=== PATIENT | female | born 1975 | race Caucasian/White ===

== ENCOUNTER 2018-07-30 20:31 | Emergency (ER) | payer OTHER ==
[2018-07-30 20:39] VITALS: RESP 18
[2018-07-30 21:40] LABS: ALT 33 U/L (9-52); AST 22 U/L (14-36); Albumin 4.8 g/dL (3.5-5.0); Alkaline Phosphatase 92 U/L (38-126); Anion Gap 9 mmol/L; Blood Urea Nitrogen 24 mg/dL (7-17); Calcium 9.5 mg/dL (8.4-10.2); Carbon Dioxide 23 mmol/L (22-30); Chloride 109 mmol/L (98-107); Creatine Kinase 89 U/L (30-135); Glucose 99 mg/dL (74-99); Sodium 141 mmol/L (137-145); Total Bilirubin 0.3 mg/dL (0.2-1.3); Total Protein 7.5 g/dL (6.3-8.2)
[2018-07-30 21:41] LABS: Basophils # (A) 0.1 k/uL (0-0.2); Basophils % (A) 1 %; Eosinophils # (A) 0.2 k/uL (0-0.7); Eosinophils % (A) 2 %; HCT 46.9 % (34.0-46.0); HGB 15.7 gm/dL (11.4-16.0); Lymphocytes # (A) 3.8 k/uL (1.0-4.8); Lymphocytes % (A) 35 %; MCH 30.1 pg (25.0-35.0); MCHC 33.4 g/dL (31.0-37.0); MCV 90.1 fL (80.0-100.0); Mean Platelet Volume 7.5; Monocytes # (A) 0.6 k/uL (0-1.0); Monocytes % (A) 5 %; Neutrophils # (A) 5.7 k/uL (1.3-7.7); Neutrophils % (A) 54 %; Platelet Count 230 k/uL (150-450); RBC 5.21 m/uL (3.80-5.40); RDW 14.5 % (11.5-15.5); WBC 10.6 k/uL (3.8-10.6)
[2018-07-30 21:45] LABS: D-Dimer 0.42 mg/L FEU (<0.60); INR 0.9 (<1.2); Partial Thromboplastin Time 24.9 sec (22.0-30.0); Prothrombin Time 10.1 sec (9.0-12.0)
--- NOTE | 2018-07-30 21:48 | XR ---
EXAMINATION TYPE: XR chest 2V DATE OF EXAM: 07/30/2018 COMPARISON: 11/02/2010 HISTORY: Chest pain TECHNIQUE: Frontal and lateral views of the chest are obtained. FINDINGS: Heart and mediastinum are normal. Lungs are clear. Diaphragm is normal. Bony thorax appear s normal. IMPRESSION: Normal chest. No change.
[2018-07-30] MEDS ORDERED: predniSONE 50 MG TAB PO STA (21:55)
[2018-07-30] MEDS ORDERED: HYDROcodone/APAP 5-325MG 1 EACH TAB PO STA (21:56)
--- NOTE | 2018-07-30 22:08 | ED ---
General Adult HPI - General Chief complaint: Extremity Injury, Upper Stated complaint: Pain in shoulders Source: patient Mode of arrival: ambulatory Limitations: no limitations - History of Present Illness Initial comments: 42-year-old female presenting for all of her muscle pain. Patient states that for the past week since last Tuesday she feels as though her muscles are being written the bone. She states it first began the left shoulder than the right shoulder she states it occurs at the wrist and at the knees bilaterally. Patient states that the neck she states it feels like it is sharp tearing pain in her entire body. Patient denies fall or trauma to the head neck or shoulders. Patient denies chest pain, dyspnea or dyspnea on exertion. Patient denies fever chills night sweats dizziness. Patient denies nausea vomiting epigastric or abdominal pain. Patient states she has a large family history of autoimmune disease as well as rheumatoid arthritis. Remaining review of systems negative, Patient denies any numbness or tingling of extremities, dysuria or he maturia, constipation or diarrhea, visual changes, or any other complaints. - Related Data Previous Rx's Medication Instructions Recorded predniSONE 20 mg PO BID 4 Days #8 tab 07/30/18 Allergies Allergy/AdvReac Type Severity Reaction Status Date / Time No Known Allergies Allergy Verified 07/30/18 20:39 Review of Systems ROS Statement: Those systems with pertinent positive or pertinent negative responses have been documented in the HPI. ROS Other: All systems not noted in ROS Statement are negative. Past Medical History Past Medical History: No Reported History History of Any Multi-Drug Resistant Organisms: None Reported Past Surgical History: Tubal Ligation Past Psychological History: Depression Smoking Status: Current every day smoker Past Alcohol Use History: None Reported Past Drug Use History: None Reported General Exam - General Exam Comments Initial Comments: General: The patient is awake and alert, in no distress, and does not appear acutely ill. Eye: Pupils are equal, round and reactive to light, extra-ocular movements are intact. No nystagmus. There is normal conjunctiva bilaterally. No signs of icterus. Ears, nose, mouth and throat: There are moist mucous membranes and no oral lesions. Neck: The neck is supple, there is no tenderness or JVD. Cardiovascular: There is a regular rate and rhythm. No murmur, rub or gallop is appreciated. Respiratory: Lungs are clear to auscultation, respirations are non-labored, breath sounds are equal. No wheezes, stridor, rales, or rhonchi. Gastrointestinal: Soft, non-distended, non-tender abdomen without masses or organomegaly noted. There is no rebound or guarding present. No CVA tenderness. Bowel sounds are unremarkable. Musculoskeletal: Normal ROM, no tenderness. Strength 5/5. Sensation intact. Pulses equal bilaterally 2+. Neurological: A&O x 3. CN II-XII intact, There are no obvious motor or sensory deficits. Coordination appears grossly intact. Speech is normal. Skin: Skin is warm and dry and no rashes or lesions are noted. Psychiatric: Cooperative, appropriate mood & affect, normal judgment. Limitations: no limitations Course Vital Signs 07/30/18 07/30/18 20:34 22:24 Temperature 97.7 F 98.5 F Pulse Rate 93 80 Respiratory 18 18 Rate Blood Pressure 128/82 120/85 O2 Sat by Pulse 97 99 Oximetry EKG Findings - EKG Comments: EKG Findings:: Ventricular rate 84 bpm, OK interval 140 ms, QR mandaeism 88 ms, QT/QTC 372/439 ms. Normal sinus rhythm with rightward axis deviation. No ST elevation or depression noted. Nonspecific T-wave. Medical Decision Making - Medical Decision Making 42-year-old female who denies past medical history presenting today for chief complaint of all over pain. Patient states it feels like her muscles of her arms and legs are being ripped from the bone. Patient has family history of autoimmune disease including rheumatoid arthritis. Patient states she has pain in the hand as well as the wrist. Patient denies any areas of swelling. Patient has history of history of blood clot. Patient denies history of IN. Patient denies chest pain or shortness of breath. Upon arrival patient appears well there is no signs of acute distress. Ambulated without difficulty. No focal neurological deficits. Laboratory studies are unremarkable. Troponin negative D dimer negative. No acute EKG changes. Patient's symptoms do not appear cohesive with an acute coronary syndrome. Chest x-ray was obtained revealing no acute cardiopulmonary process. At this time is unclear the etiol ogy of patient's pain. With the patient's family history differential diagnosis includes autoimmune disease, rheumatoid arthritis or fibromyalgia. Patient will be started on a steroid for the next 4 days. Patient provided 50 mg tablet of prednisone in the emergency department as well as medical. Patient has right home. Instructed patient to follow-up outpatient as well as with a sales officer. For further evaluation. Patient is agreeable to plan of care today as well as discharge. I discussed the case with a provider who is agreeable with care plan and patients discharge. - Lab Data Result diagrams: 07/30/18 21:20 07/30/18 21:20 Lab Results 07/30/18 07/30/18 07/30/18 Range/Units 21:20 21:20 21:20 WBC 10.6 (3.8-10.6) k/uL RBC 5.21 (3.80-5.40) m/uL Hgb 15.7 (11.4-16.0) gm/dL Hct 46.9 H (34.0-46.0) % MCV 90.1 (80.0-100.0) fL MCH 30.1 (25.0-35.0) pg MCHC 33.4 (31.0-37.0) g/dL RDW 14.5 (11.5-15.5) % Plt Count 230 (150-450) k/uL Neutrophils % 54 % Lymphocytes % 35 % Monocytes % 5 % Eosinophils % 2 % Basophils % 1 % Neutrophils # 5.7 (1.3-7.7) k/uL Lymphocytes # 3.8 (1.0-4.8) k/uL Monocytes # 0.6 (0-1.0) k/uL Eosinophils # 0.2 (0-0.7) k/uL Basophils # 0.1 (0-0.2) k/uL PT 10.1 (9.0-12.0) sec INR 0.9 (<1.2) APTT 24.9 (22.0-30.0) sec D-Dimer 0.42 (<0.60) mg/L FEU Sodium 141 (137-145) mmol/L Potassium 4.0 (3.5-5.1) mmol/L Chloride 109 H (98-107) mmol/L Carbon Dioxide 23 (22-30) mmol/L Anion Gap 9 mmol/L BUN 24 H (7-17) mg/dL Creatinine 0.76 (0.52-1.04) mg/dL Est GFR (CKD-EPI)AfAm >90 (>60 ml/min/1.73 sqM) Est GFR (CKD-EPI)NonAf >90 (>60 ml/min/1.73 sqM) Glucose 99 (74-99) mg/dL Calcium 9.5 (8.4-10.2) mg/dL Total Bilirubin 0.3 (0.2-1.3) mg/dL AST 22 (14-36) U/L ALT 33 (9-52) U/L Alkaline Phosphatase 92 (38-126) U/L Creatine Kinase 89 (30-135) U/L Troponin I (0.000-0.034) ng/mL Total Protein 7.5 (6.3-8.2) g/dL Albumin 4.8 (3.5-5.0) g/dL 07/30/18 Range/Units 21:20 WBC (3.8-10.6) k/uL RBC (3.80-5.40) m/uL Hgb (11.4-16.0) gm/dL Hct (34.0-46.0) % MCV (80.0-100.0) fL MCH (25.0-35.0) pg MCHC (31.0-37.0) g/dL RDW (11.5-15.5) % Plt Count (150-450) k/uL Neutrophils % % Lymphocytes % % Monocytes % % Eosinophils % % Basophils % % Neutrophils # (1.3-7.7) k/uL Lymphocytes # (1.0-4.8) k/uL Monocytes # (0-1.0) k/uL Eosinophils # (0-0.7) k/uL Basophils # (0-0.2) k/uL PT (9.0-12.0) sec INR (<1.2) APTT (22.0-30.0) sec D-Dimer (<0.60) mg/L FEU Sodium (137-145) mmol/L Potassium (3.5-5.1) mmol/L Chloride (98-107) mmol/L Carbon Dioxide (22-30) mmol/L Anion Gap mmol/L BUN (7-17) mg/dL Creatinine (0.52-1.04) mg/dL Est GFR (CKD-EPI)AfAm (>60 ml/min/1.73 sqM) Est GFR (CKD-EPI)NonAf (>60 ml/min/1.73 sqM) Glucose (74-99) mg/dL Calcium (8.4-10.2) mg/dL Total Bilirubin (0.2-1.3) mg/dL AST (14-36) U/L ALT (9-52) U/L Alkaline Phosphatase (38-126) U/L Creatine Kinase (30-135) U/L Troponin I <0.012 (0.000-0.034) ng/mL Total Protein (6.3-8.2) g/dL Albumin (3.5-5.0) g/dL Disposition Clinical Impression: Bone pain Disposition: HOME SELF-CARE Condition: Good Instructions (If sedation given, give patient instructions): Trigger Point Pain (ED) Additional Instructions: Please use medication as discussed. Please follow-up with family doctor in the next 2 days, I recommend rheumatoid evaluation. Please return to emergency room if the symptoms increase or worsen or for any other concerns. Prescriptions: predniSONE 20 mg PO BID 4 Days #8 tab Is patient prescribed a controlled substance at d/c from ED?: No Referrals: None,Stated [Primary Care Provider] - 1-2 days [facility] [NON[facility]] - 1-2 days Valentina Winkler MD [STAFF PHYSICIAN] - 1-2 days Time of Disposition: 22:07
[2018-07-30 22:25] VITALS: BP 120/85; PULSE 80; TEMP 98.5
== END 2018-07-30 22:25 | disposition home or self-care (01) ==
LOC: EC 20:31
DX: M89.8X4 Other specified disorders of bone, hand (principal); M89.8X8 Other specified disorders of bone, other site; F17.200 Nicotine dependence, unspecified, uncomplicated
CPT/HCPCS: 36415; 93005; 85379; 80053; 82550; 84484; 85025; 85610; 85730; 71046; 99284; J7512

== ENCOUNTER 2018-08-08 10:56 | Emergency (ER) | payer OTHER ==
[2018-08-08] MEDS ORDERED: KETOROLAC 60 MG/2 ML VIAL IM STA (11:35)
--- NOTE | 2018-08-08 11:41 | ED ---
General Adult HPI - General Chief complaint: Back Pain/Injury Stated complaint: Hip pain Time Seen by Provider: 08/08/18 11:12 Source: patient, RN notes reviewed Mode of arrival: ambulatory Limitations: no limitations - History of Present Illness Initial comments: Patient 42-year-old female presented to the emergency room today with chief complaint of increased left hip pain radiate down to the left knee. Patient denies any injury or trauma. She does admit that yesterday she was washing some dishes at her [place] when she had some increased pain. She does admit that it's worse with movements. She does admit that she's had some symptoms of sciatic type pain on and off over the last few years. She states she was here in the emergency room approximately a week ago because she was having some pain to her shoulders bilaterally. She states that she was given anti-inflammatories and steroids at the time and improved. She states she feel fine but this is similar pain that now she does experience intermittent hip. Patient denies any other complaints or symptoms. Patient denies any recent fever, chills, shortness of breath, chest pain, abdominal pain, nausea or vomiting, headaches or visual changes, or any other complaints. - Related Data Home Medications Medication Instructions Recorded Confirmed Ibuprofen [Motrin Ib] 800 mg PO TID PRN 08/08/18 08/08/18 Multivitamins, Thera [Multivitamin 1 tab PO DAILY 08/08/18 08/08/18 (formulary)] Previous Rx's Medication Instructions Recorded Cyclobenzaprine [Flexeril] 10 mg PO TID #20 tab 08/08/18 Ibuprofen [Motrin] 800 mg PO Q6HR #30 tab 08/08/18 predniSONE 40 mg PO DAILY 5 Days tab 08/08/18 Allergies Allergy/AdvReac Type Severity Reaction Status Date / Time No Known Allergies Allergy Verified 08/08/18 11:20 Review of Systems ROS Statement: Those systems with pertinent positive or pertinent negative responses have been documented in the HPI. ROS Other: All systems not noted in ROS Statement are negative. Past Medical History Past Medical History: No Reported History History of Any Multi-Drug Resistant Organisms: None Reported Past Surgical History: Tubal Ligation Past Psychological History: Depression Smoking Status: Current every day smoker Past Alcohol Use History: None Reported Past Drug Use History: None Reported General Exam - General Exam Comments Initial Comments: General: The patient is awake and alert, in no distress, and does not appear acutely ill. Eye: There is normal conjunctiva bilaterally. No signs of icterus. Ears, nose, mouth and throat: There are moist mucous membranes and no oral lesions. Neck: The neck is supple, there is no tenderness or JVD. : Musculoskeletal: Patient shows good range of motion with pain is reproduced with movements of the lower back with bending, turning or twisting. Patient sensations are intact. Neurological: A&O x 3. CN II-XII intact, There are no obvious motor or sensory deficits. Coordination appears grossly intact. Speech is normal. Skin: Skin is warm and dry and no rashes or lesions are noted. Psychiatric: Cooperative, appropriate mood & affect, normal judgment. Limitations: no limitations Course Vital Signs 08/08/18 10:58 Temperature 97.6 F Pulse Rate 87 Respiratory 20 Rate Blood Pressure 104/70 O2 Sat by Pulse 99 Oximetry Medical Decision Making - Medical Decision Making Patient presented to the emergency room today with a chief complaint of pain to the left hip radiating down the leg. States started yesterday when she was doing the dishes. Patient's pain is reproduced with movements. So be muscular skeletal. There is no fall or other injury. X-rays are felt to not be beneficial at this time. Patient will be treated for muscle skeletal pain with anti-inflammatories, muscle relaxer, course of steroids for her symptoms as she states that this is helped with similar pain in the past. Patient is advised follow-up the family doctor over the next 2-5 days. Advised return here to emergency room for symptoms increase or worsen or for any other concerns. Disposition Clinical Impression: Acute lumbar radiculopathy Disposition: HOME SELF-CARE Condition: Good Instructions (If sedation given, give patient instructions): Acute Low Back Pain (ED) Additional Instructions: Please use medication as discussed. Please follow-up with family doctor in the next 2 days of symptoms have not improved. Please return to emergency room if the symptoms increase or worsen or for any other concerns. Prescriptions: Cyclobenzaprine [Flexeril] 10 mg PO TID #20 tab Ibuprofen [Motrin] 800 mg PO Q6HR #30 tab predniSONE 40 mg PO DAILY 5 Days tab Is patient prescribed a controlled substance at d/c from ED?: No Referrals: None,Stated [Primary Care Provider] - 1-2 days Time of Disposition: :40
[2018-08-08 12:09] VITALS: BP 105/68; PULSE 81; RESP 16; TEMP 98
== END 2018-08-08 12:08 | disposition home or self-care (01) ==
LOC: EC 10:56
DX: M54.16 Radiculopathy, lumbar region (principal); F17.200 Nicotine dependence, unspecified, uncomplicated
CPT/HCPCS: 99283; 96372; J1885

== ENCOUNTER 2018-11-15 14:24 | Emergency (ER) | payer OTHER ==
[2018-11-15 15:01] VITALS: BP 116/78; PULSE 87; RESP 18; TEMP 98.4
== END 2018-11-15 15:42 | disposition left against medical advice (07) ==
LOC: EC 14:24
DX: R10.9 Unspecified abdominal pain (principal); Z53.21 Procedure and treatment not carried out due to patient leaving prior to being seen by health care provider
CPT/HCPCS: 99499

== ENCOUNTER → 2023-12-15 | Outpatient (CLI) | payer MEDICAID, OTHER ==
--- NOTE | 2023-12-15 20:07 | MR ---
PRE AND POSTCONTRAST ENHANCED MRI OF THE BRAIN: CLINICAL HISTORY: Pseudo papilledema. CONTRAST: gadavist 7ml Multiplanar and multispin-echo imaging of the brain was performed both before and after the administr ation of contrast. The ventricles, basal cisterns and sulci overlying the cerebral convexities are within normal limits. There is no evidence for midline shift or mass effect. Acute intracranial hemorrhage or extra-axial collection is not evident. 3 mm focus of increased signal deep white matter right frontal lobe image 24. Several scattered subco rtical foci of increased signal left parietal lobe all measuring less than 3 mm with similar findings on the right. Following contrast administration, there is no evidence for pathologic enhancement or enhancing mass. The paranasal sinuses and mastoid air cells are well-aerated. IMPRESSION: Nonspecific white matter changes which could reflect sequela of chronic small vessel ischemic change, chronic migraine headaches, sequelae of Lyme's disease as well as demyelinating disorder. Correlate clinically.
== END | disposition home or self-care (01) ==
LOC: RADMRIMAIN 12:35
PROVIDERS: ATTEND Ophthalmology
DX: H47.333 Pseudopapilledema of optic disc, bilateral
CPT/HCPCS: 70553